=== PATIENT | female | born 1985 | race Caucasian/White ===

== ENCOUNTER → 2019-02-11 | Outpatient (REF) ==
[~2019-02-11] MED LIST: ALPRAZOLAM0.25 M1 PO; ANTIVERT PO; BLOOD GLUCOSE MONITO XX; BLOOD GLUCOSE TEST S VI; CYANOCOBALAM1000 MCG IJ; GLIPIZIDE ER10 M1 PO; IMITREX25 MG PO; INVOKANA100 MG PO; INVOKANA300 MG PO; LANCETS 30G30 G XX; LEVEMIR1000 UNITS SC; LEVOTHROID125 MCG PO; LEVOTHYROXIN112 MC1 PO; LEVOTHYROXIN125 MCG PO; LEVOTHYROXIN150 MC1 PO; MAXALT-MLT10 MG PO; MECLIZINE12.5 M1 PO; MECLIZINE12.5 MG PO; METFORMIN1000 MG PO; METFORMIN500 M1 PO; METFORMIN500 MG PO; NOVOLOG100 IU/1 M SC; ONDANSETRON4 MG PO
== END | disposition home or self-care (01) | DRG 305 ==
LOC: LAB 07:41
PROVIDERS: ATTEND Family Medicine
DX: I10 Essential (primary) hypertension (principal); E78.5 Hyperlipidemia, unspecified; R73.09 Other abnormal glucose; E11.8 Type 2 diabetes mellitus with unspecified complications; E03.9 Hypothyroidism, unspecified

== ENCOUNTER → 2019-02-11 | Outpatient (REF) | payer OTHER ==
[2019-02-11 09:46] LABS: HEMATOCRIT 39.8 % (37.0-47.0); HEMOGLOBIN 13.1 g/dl (12.0-16.0); IMMATURE GRANULOCYTES 0.4 % (0.0-5.0); MEAN CELL VOLUME 93.2 fL CALC (80.0-100.0); MEAN CORPUSCULAR HGB 30.7 pG CALC (26.0-32.0); MEAN CORPUSCULAR HGB CONC 32.9 g/L CALC (32.0-36.0); NEUT# 2.88 thou/uL (2.00-7.15); RED BLOOD COUNT 4.27 mill/uL (4.20-5.60); RED CELL DISTRI WIDTH 12.3 % (11.5-15.5)
[2019-02-11 11:42] LABS: ALBUMIN 3.8 g/dL (3.2-5.0); ALKALINE PHOSPHATASE 45 u/l (38-126); ANION GAP 12 (6-22 (CALC)); BILIRUBIN, TOTAL 0.5 mg/dL (0.0-1.4); BUN 15 mg/dL (7-17); BUN/CREATININE RATIO 20 (12-20 (CALC)); CARBON DIOXIDE 26 mmol/l (22-30); CHLORIDE 105 mmol/l (95-108); CREATININE 0.8 mg/dL (0.5-1.0); GFR > 60 ML/MIN (>=60 (CALC)); GFR FOR AFR.AMER. > 60 ML/MIN (>=60 (CALC)); POTASSIUM 3.7 mmol/l (3.5-5.1); SGOT/AST 16 u/l (14-36); SODIUM 138 mmol/l (137-146); TOTAL PROTEIN 6.2 g/dL (6.3-8.2)
== END | disposition home or self-care (01) | DRG 305 ==
LOC: LAB 07:39
PROVIDERS: ATTEND Family Medicine
DX: I10 Essential (primary) hypertension (principal); E78.5 Hyperlipidemia, unspecified; R73.09 Other abnormal glucose; E11.8 Type 2 diabetes mellitus with unspecified complications; E03.9 Hypothyroidism, unspecified

== ENCOUNTER 2019-07-10 14:12 | Inpatient (IN) | payer OTHER ==
[~2019-07-10] VITALS: Ht 180.3 cm; Wt 93.0 kg
[2019-07-10] VITALS (8 sets, daily range): BP systolic 90–117; BP diastolic 51–69
--- NOTE | 2019-07-10 14:12 | NUR ---
PT IMMEADIATELY TO ROOM VIA WC.
--- NOTE | 2019-07-10 14:50 | NUR ---
PATIENT ADVISED THAT SHE HAS NOT BEEN ABLE TO KEEP ANYTHING DOWN INCLUDING MEDICATIONS OR WATER. SHE IS DEHYDRATED. LAB PERFORMED STRAIGHT STICK FOR COLLECTION
[2019-07-10 15:04] LABS: HEMATOCRIT 40.4 % (37.0-47.0); HEMOGLOBIN 13.1 g/dl (12.0-16.0); IMMATURE GRANULOCYTES 0.4 % (0.0-5.0); MEAN CELL VOLUME 95.7 fL CALC (80.0-100.0); MEAN CORPUSCULAR HGB CONC 32.4 g/L CALC (32.0-36.0); NEUT# 9.96 thou/uL (2.00-7.15); RED BLOOD COUNT 4.22 mill/uL (4.20-5.60); RED CELL DISTRI WIDTH 12.1 % (11.5-15.5)
--- NOTE | 2019-07-10 15:18 | NUR ---
PATIENT CONTINUES TO REST. HAS REQUEST TO URINATE. PATIENT WAS ADVISED THAT SHE IS TOO UNSTEADY TO WALK TO RESTROOM. BSC PROVIDED. UA COLLECTED.
[2019-07-10 15:22] LABS: BUN 13 mg/dL (7-17); BUN/CREATININE RATIO 12 (12-20 (CALC)); CHLORIDE 105 mmol/l (95-108); GFR > 60 ML/MIN (>=60 (CALC)); GFR FOR AFR.AMER. > 60 ML/MIN (>=60 (CALC)); SGOT/AST 19 u/l (14-36); SODIUM 139 mmol/l (137-146)
[2019-07-10 15:25] LABS: ANION GAP 30 (6-22 (CALC)); CARBON DIOXIDE 9 mmol/l (22-30); POTASSIUM 5.4 mmol/l (3.5-5.1)
[2019-07-10 15:26] LABS: ALBUMIN 5.1 g/dL (3.2-5.0); ALKALINE PHOSPHATASE 97 u/l (38-126); BILIRUBIN, TOTAL 1.1 mg/dL (0.0-1.4); TOTAL PROTEIN 7.9 g/dL (6.3-8.2)
[2019-07-10] MEDS ORDERED: LEVOTHYROXIN100 MCG PO (15:30)
[2019-07-10 15:35] LABS: URINE BILIRUBIN - DIPSTICK NEGATIVE (NEGATIVE); URINE BLOOD DIPSTICK MODERATE (NEGATIVE); URINE COLOR YELLOW; URINE GLUCOSE - DIPSTICK >=1000 mg/dL (NEGATIVE); URINE KETONE >=80 mg/dL (NEGATIVE); URINE LEUK ESTERASE NEGATIVE (NEGATIVE); URINE PH 5.5 (4.5-8.0); URINE PROTEIN - DIPSTICK TRACE mg/dL (NEG-TRACE); URINE SPECIFIC GRAVITY 1.025; URINE UROBILINOGEN - DIPSTICK 0.2 E.U./dL (0.2)
[2019-07-10 15:44] LABS: URINE EPITHELIAL CELLS RARE EPI/hpf (0-FEW); URINE NITRITE - DIPSTICK NEGATIVE (Negative)
--- NOTE | 2019-07-10 15:55 | NUR ---
PATIENT LAYING ON RIGHT SIDE. WITH C/O HEADACHE- SCATTERED AROUND HEAD. ADVISED WILL DISCUSS WITH MD ABOUT SOMETHING TO EASE PAIN.
--- NOTE | 2019-07-10 16:22 | NUR ---
LAB IN ROOM FOR 2ND LACTIC ACID DRAW
--- NOTE | 2019-07-10 17:00 | NUR ---
BG FINGERSTICK COLLECTED WITH 392 RESULT. PATIENT CURRENTLY RUNNING 5 UNITS INSULIN DRIP
--- NOTE | 2019-07-10 17:53 | NUR ---
RECHECK ACCUCHEK: 333. CONTINUES WITH INSULIN AT 4UNITS/HR
--- NOTE | 2019-07-10 18:00 | NUR ---
REPORT GIVEN TO ACCOUNTING REPRESENTATIVE DANISH. ALL PERSONAL ITEMS WERE COLLECTED AND GIVEN TO SPOUSE. CT SCAN HEAD ORDERED PRIOR TO ADMISSION TO ICU. PATIENT WILL GO FROM ER TO CT THEN TO ICU.
[2019-07-10 18:13] LABS: POTASSIUM 4.5 mmol/l (3.5-5.1)
--- NOTE | 2019-07-10 18:14 | NUR ---
PATIENT TRANSPORTED TO CT WITH SPOUSE IN TOW. SHE WAS ON MONITOR AND CONTINUED WITH INSULIN AT 4 UNITS/HR AND NS AT 750ML/HR. VITALS REMAIN STABLE WITH EXCEPTION OF HR >110BPM. PATIENT THEN TRANSFERRED TO ICU4 ONCE COMPLE[address]ED CT SCAN. UPDATED DANISH IN ICU UPON ARRIVAL. CARE SURRENDERED TO ICU
[2019-07-10] MEDS ORDERED: TRESIBA100 UNIT/M (18:59)
--- NOTE | 2019-07-10 19:00 | NUR ---
PATIENT LAYING WITH HOB 30 DEGREES. ALERT AND ORIENTED X4. ON RA. NO ACUTE RESPIRATORY DISTRESS NOTED. SATS 100%. HEAD TO TOE NURSING ASSESSMENT PERFORMED. COMPLAINS OF HEADACHE RATE OF 8 RADIATES TO ABDOMEN AND BACK. REQUESTS STRONGER PAIN MEDICATION FOR ADAMSON. LH 22 G IV INTACT, NS BOLUS INFUSING. 3RD NS BOLUS INFUSING. LAST BM 07/09/19. AFEBRILE. SINUS TACHYCARDIA IN LOW 100'S ON TELEMETRY. ADMISSION INTERVENTIONS COMPLETE. AT BEDSIDE. EDUCATED ON POC, MEDICATIONS, LABWORK, TESTS. ALSO AHS INSULIN DRIP INFUSING AT 4 UNITS/HR. INFORMED WILL TALK TO DR KANG OF PAIN MEDICATION FOR ADAMSON. INFORMED CT RESULTS WILL BE INFORMED TO DR KANG WELL. SAFETY PRECAUTIONS ENFORCED. CALL LIGHT WITHIN REACH. WILL CONTINUE TO MONITOR. SELF REPOSITIONS. ALSO INFORMS SHE IS SPOTTING FROM HER PERIOD.
--- NOTE | 2019-07-10 19:30 | NUR ---
dr raines called, update given on patient. new orders received. pain medication order will be placed by dr raines.
[2019-07-10 21:46] LABS: ANION GAP 21 (6-22 (CALC)); BUN 10 mg/dL (7-17); BUN/CREATININE RATIO 12 (12-20 (CALC)); CHLORIDE 115 mmol/l (95-108); CREATININE 0.9 mg/dL (0.5-1.0); GFR > 60 ML/MIN (>=60 (CALC)); GFR FOR AFR.AMER. > 60 ML/MIN (>=60 (CALC)); POTASSIUM 4.5 mmol/l (3.5-5.1); SODIUM 139 mmol/l (137-146)
[2019-07-10 22:02] LABS: CARBON DIOXIDE 8 mmol/l (22-30)
--- NOTE | 2019-07-10 22:10 | NUR ---
dr raines notified of co2 critical at 8. also notified him of recent chem 7 lab results and blood sugar. orders to follow dka protocol and insulin drip protocol. orders to call as needed.
[2019-07-11] VITALS (25 sets, daily range): BP systolic 81–114; BP diastolic 40–71
--- NOTE | 2019-07-11 | NUR ---
PATIENT STILL COMPLAINS OF ADAMSON. AROUSES EASILY WHEN SPOKEN TO. LAYING SUPINE. SELF REPOSITIONS. CALL LIGHT WITHIN REACH.
--- NOTE | 2019-07-11 00:12 | NUR ---
KATERINA KAMARA APPLIED TO PATIENT, RECTAL TEMP 94.4.
--- NOTE | 2019-07-11 02:00 | NUR ---
PATIENT LAYING SUPINE IN BED. REQUESTED HOT PACKS EARLIER, APPLIED TO BACK OF NECK, HEAD. AROUSES EASILY. ON ROOM AIR. NSR ON TELEMETRY, HR IN 90'S. STILL COMPLAINS OF ADAMSON RATE OF 8. PLACEMENT MANAGER IN ROOM TO GET CHEM 7. CALL LIGHT WITHIN REACH. WILL CONTINUE TO MONITOR.
[2019-07-11 02:33] LABS: BUN 9 mg/dL (7-17); BUN/CREATININE RATIO 12 (12-20 (CALC)); CHLORIDE 114 mmol/l (95-108); CREATININE 0.7 mg/dL (0.5-1.0); GFR > 60 ML/MIN (>=60 (CALC)); GFR FOR AFR.AMER. > 60 ML/MIN (>=60 (CALC)); SODIUM 135 mmol/l (137-146)
[2019-07-11 03:16] LABS: ANION GAP 13 (6-22 (CALC)); CARBON DIOXIDE 12 mmol/l (22-30)
--- NOTE | 2019-07-11 03:31 | NUR ---
CALLED DR KANG TO NOTIFY OG ANION GAP CLOSED AND CURRENT LAB RESULTS, NEW ORDERS PLACED IN CHART. ALSO NOTIFIED DR KANG OF PATIENT COMPLAINS OF HEADACHE RATE OF 8, NEW ORDERS GIVEN.
--- NOTE | 2019-07-11 04:07 | NUR ---
PATIENT ASSISTED X1 MINIMAL TO BSC. URINE YELLOW AND CLEAR. PAIN MEDICATION ALREADY GIVEN FOR ADAMSON, WILL MONITOR. POC FOR THIS MORNING DISCUSSED. ALL QUESTIONS ANSWERED. CONTINUES TO USE HEAT PACKS. WILL CONTINUE TO MONITOR.
[2019-07-11 06:07] LABS: IMMATURE GRANULOCYTES 0.3 % (0.0-5.0); MEAN CELL VOLUME 95.7 fL CALC (80.0-100.0); MEAN CORPUSCULAR HGB 32.1 pG CALC (26.0-32.0); MEAN CORPUSCULAR HGB CONC 33.5 g/L CALC (32.0-36.0); NEUT# 7.87 thou/uL (2.00-7.15); RED BLOOD COUNT 3.27 mill/uL (4.20-5.60); RED CELL DISTRI WIDTH 12.1 % (11.5-15.5)
[2019-07-11 06:11] LABS: HEMATOCRIT 31.3 % (37.0-47.0); HEMOGLOBIN 10.5 g/dl (12.0-16.0)
[2019-07-11 06:21] LABS: ANION GAP 13 (6-22 (CALC)); BUN 7 mg/dL (7-17); BUN/CREATININE RATIO 9 (12-20 (CALC)); CARBON DIOXIDE 13 mmol/l (22-30); CHLORIDE 113 mmol/l (95-108); CREATININE 0.7 mg/dL (0.5-1.0); GFR > 60 ML/MIN (>=60 (CALC)); GFR FOR AFR.AMER. > 60 ML/MIN (>=60 (CALC)); POTASSIUM 3.9 mmol/l (3.5-5.1); SODIUM 135 mmol/l (137-146)
--- NOTE | 2019-07-11 06:30 | NUR ---
PATIENT STILL COMPLAINS OF HEADACHE, NEW ORDER PLACED FOR PAIN MEDICATION. REQUESTS MORE HOT PACKS. REMAINS HYPOTENSIVE 80'S TO 90'S SYTOLICALLY, MAP GREATER THAN 60. TOLERATED NEW IV PLACED ON RH 22G. BOLUS OF NS INFUSING. EDUCATED ON MEDICATIONS SHE WILL BE RECEIVING. CALL LIGHT WITHIN REACH.
--- NOTE | 2019-07-11 06:41 | NUR ---
CALLED DR KANG REGARDING PAIENT'S BP, NEW ORDERS PLACED.
--- NOTE | 2019-07-11 06:45 | NUR ---
RECIEVED REPORT FROM SANDRA MORALES . ASSUMED PT CARE.
--- NOTE | 2019-07-11 07:00 | NUR ---
PT A&OX3 ABLE TO MAKE NEEDS KNOWN. ASSESSMENT COMPLETED, PT CONTINUES ON INSULIN DRIP PER PROTOCOL, AFEBRILE. PT CONTINUES WITH MIGRAINE, STATED PAIN 12 ON 12-11. PT HAS HEATING PAD FOR NECK DISCOMFORT. FATHER AT BEDSIDE. CALL LIGHT IN REACH. WILL MONITOR.
--- NOTE | 2019-07-11 07:50 | NUR ---
PT REPOSTIONED SELF, BREAKFAST TRAY SET UP.
--- NOTE | 2019-07-11 10:00 | NUR ---
DR. KANG AT BEDSIDE FOR ASSESSMENT AND TO DISCUSS PLAN OF CARE, NEW ORDERS RECIEVED. FATHER REMAINS AT BEDSIDE.
--- NOTE | 2019-07-11 10:20 | NUR ---
PT ASSISTED TO BSC, THEN BACK TO BED. CALL LIGHT IN REACH. WILL MONITOR.
[2019-07-11 10:30] LABS: ANION GAP 10 (6-22 (CALC)); BUN 6 mg/dL (7-17); BUN/CREATININE RATIO 9 (12-20 (CALC)); CARBON DIOXIDE 14 mmol/l (22-30); CHLORIDE 113 mmol/l (95-108); CREATININE 0.7 mg/dL (0.5-1.0); GFR > 60 ML/MIN (>=60 (CALC)); GFR FOR AFR.AMER. > 60 ML/MIN (>=60 (CALC)); POTASSIUM 3.8 mmol/l (3.5-5.1); SODIUM 133 mmol/l (137-146)
--- NOTE | 2019-07-11 11:35 | NUR ---
THOM THURMAN AT BEDSIDE FOR ASSESSMENT AND TO DISCUSS PLAN OF CARE.
--- NOTE | 2019-07-11 12:09 | NUR ---
PT AT BEDSIDE.
--- NOTE | 2019-07-11 14:10 | NUR ---
PT RESTING IN BED, STATES H/A PAIN 2 ON 1-10 SCALE. WATCHING TV, OFFERS NO COMPLAINTS AT THIS TIME. CALL LIGHT IN REACH. WILL MONITOR.
[2019-07-11 14:44] LABS: ANION GAP 10 (6-22 (CALC)); BUN 6 mg/dL (7-17); BUN/CREATININE RATIO 9 (12-20 (CALC)); CARBON DIOXIDE 16 mmol/l (22-30); CHLORIDE 113 mmol/l (95-108); CREATININE 0.7 mg/dL (0.5-1.0); GFR > 60 ML/MIN (>=60 (CALC)); GFR FOR AFR.AMER. > 60 ML/MIN (>=60 (CALC)); POTASSIUM 3.9 mmol/l (3.5-5.1); SODIUM 136 mmol/l (137-146)
--- NOTE | 2019-07-11 18:20 | NUR ---
PT STATED THAT HER THROAT WAS HURTING HER AND HER CHEST FELT TIGHT LIKE SHE NEEDED TO COUGH. PT ENCOURAGED TO DEEP BREATHE. TRY COUGHING AND TO GET UP TO RECLINER OR WALK. IS PLACED AT BEDSIDE, EDUCATION GIVEN ON IT USE. PT ALSO MENTIONED HER CHILD IS A CARRIER OF STREP A , DEEP THROAT SWAB PER PROTOCOL COLLECTED. PT REMAINS AFEBRILE. VSS. PT MOTHER REMAINS AT BEDSIDE. CALL LIGHT IN REACH, WILL MONITOR.
--- NOTE | 2019-07-11 19:10 | NUR ---
awake. denied n/v. site monitor shows sinus rhythm. #22 lt hand saline lock. #22 rt hand ns infusing @ 150cchr. po fluids taken well. voids per bsc. pt admitted menses began. fall precautions cont. mother @ bedside.
--- NOTE | 2019-07-11 22:00 | NUR ---
watching tv. no c/o voiced. home theatre technician shows sinus rhythm.
[2019-07-12] VITALS (9 sets, daily range): BP systolic 96–143; BP diastolic 62–87
--- NOTE | 2019-07-12 00:01 | NUR ---
awakens easily. denies distress. youth nutritional monitor shows sinus rhythm.
--- NOTE | 2019-07-12 02:00 | NUR ---
resting quietly. resps even & unlabored. no apparent distress.
--- NOTE | 2019-07-12 04:30 | NUR ---
lab here. blood drawn.
[2019-07-12 05:47] LABS: HEMATOCRIT 30.4 % (37.0-47.0); HEMOGLOBIN 10.3 g/dl (12.0-16.0); IMMATURE GRANULOCYTES 0.2 % (0.0-5.0); MEAN CELL VOLUME 94.1 fL CALC (80.0-100.0); MEAN CORPUSCULAR HGB 31.9 pG CALC (26.0-32.0); MEAN CORPUSCULAR HGB CONC 33.9 g/L CALC (32.0-36.0); NEUT# 2.61 thou/uL (2.00-7.15); RED BLOOD COUNT 3.23 mill/uL (4.20-5.60); RED CELL DISTRI WIDTH 12.2 % (11.5-15.5)
[2019-07-12 05:52] LABS: ANION GAP 7 (6-22 (CALC)); BUN 8 mg/dL (7-17); BUN/CREATININE RATIO 13 (12-20 (CALC)); CARBON DIOXIDE 19 mmol/l (22-30); CHLORIDE 115 mmol/l (95-108); CREATININE 0.6 mg/dL (0.5-1.0); GFR > 60 ML/MIN (>=60 (CALC)); GFR FOR AFR.AMER. > 60 ML/MIN (>=60 (CALC)); MAGNESIUM 1.7 mg/dL (1.6-2.3); POTASSIUM 3.7 mmol/l (3.5-5.1); SODIUM 138 mmol/l (137-146)
--- NOTE | 2019-07-12 06:00 | NUR ---
eyes closed. no distress. conveyor monitor shows sinus rhythm.
--- NOTE | 2019-07-12 06:45 | NUR ---
RECIEVED REPORT FROM CHINA NAGY. ASSUMED PT CARE.
--- NOTE | 2019-07-12 08:00 | NUR ---
PT RESTING IN BED, A&0 ABLE TO MAKE NEEDS KNOWN AND UTILIZE CALL LIGHT.RESPIRATIONS EVEN/UNLABORED. PT DENIES H/A AT THIS TIME. ASSESSMENT COMPLETED. CALL LIGHT IN REACH. WILL MONITOR.
--- NOTE | 2019-07-12 09:45 | NUR ---
DR. KANG AT BEDSIDE FOR ASSESSMENT AND TO DISCUSS PLAN OF CARE. NEW ORDERS RECIEVED. CALL LIGHT IN REACH. WILL MONITOR.
--- NOTE | 2019-07-12 10:00 | NUR ---
THOM THURMAN AT BEDSIDE.
--- NOTE | 2019-07-12 12:00 | NUR ---
FAMILY AT BEDSIDE , OFFERS NO COMPLAINTS AT THIS TIME.
--- NOTE | 2019-07-12 13:20 | NUR ---
PT TRANSFERRED FROM ICU VIA WHEELCHAIR. GAIT IS STEADY. VSS. PT HAS NO ORDER FOR TELE. ORIENTED TO ROOM AND CALL ESPINOSA. PT ASSISTED INTO THE SHOWER. FAMILY AT BEDSIDE. CALL ESPINOSA WITHIN REACH.
--- NOTE | 2019-07-12 14:00 | NUR ---
PT RESTING IN BED. ALERT AND ORIENTED X4. RESP EVEN AND UNLABORED. LUNGS CLEAR BILAT. ABD SOFT AND NONDISTENDED WITH BOWEL SOUNDS PRESENT. NO LOWER EXT EDEMA NOTED. PEDAL PULSES PALPATED BILAT. HEPLOCK PATENT IN RT HAND. IV SITE PATENT IN LEFT HAND NSS AT 150CC/HR. PT OFFERS NO COMPLAINTS. AT THIS TIME. FAMILY AT BEDSIDE. FREQUENT ROUNDS MADE. CALL ESPINOSA WITHIN REACH.
--- NOTE | 2019-07-12 17:00 | NUR ---
PT AWAKE RESTING IN BED. FAMILY AT BEDSIDE. RESP EVEN AND UNLABORED. IV SITE PATENT NO REDNESS OR SWELLING AT SITE. PT OFFERS NO COMPLAINTS. FREQUENT ROUNDS MADE. CALL ESPINOSA WITHIN REACH.
--- NOTE | 2019-07-12 19:08 | NUR ---
REPORT RECEIVED FROM SANDRA MUNOZ. PT RESTING IN BED NO S/S OF DISTRESS, SAFETY PRECAUTIONS IN PLACE, WILL CONTINUE TO MONITOR.
--- NOTE | 2019-07-12 19:55 | NUR ---
PT RESTING IN BED, ALERT AND ORIENTED. RESPIRATIONS EVEN AND UNLABORED ON RA, LUNGS SOUND CLEAR. PEDAL PULSES STRONG. PT REPORTS FEELING NAUSEOUS, PT TO BE MEDICATED PER EMAR ORDERS. SAFETY PRECAUTIONS IN PLACE. WILL CONTINUE TO MONITOR.
--- NOTE | 2019-07-13 02:59 | NUR ---
PT RESTING IN BED. RESPIRATIONS EVEN AND UNLABORED ON RA. NO S/S OF DISTRESS. WILL CONTINUE TO MONITOR.
--- NOTE | 2019-07-13 04:30 | NUR ---
PT RESTING IN BED. RESPIRATIONS EVEN AND UNLABORED ON RA. NO S/S OF DISTRESS AT THIS TIME. WILL CONTINUE TO MONITOR.
[2019-07-13 04:47] VITALS: BP 108/71
[2019-07-13 05:53] LABS: BUN 7 mg/dL (7-17); BUN/CREATININE RATIO 12 (12-20 (CALC)); CHLORIDE 114 mmol/l (95-108); CREATININE 0.6 mg/dL (0.5-1.0); GFR > 60 ML/MIN (>=60 (CALC)); GFR FOR AFR.AMER. > 60 ML/MIN (>=60 (CALC)); SODIUM 141 mmol/l (137-146)
[2019-07-13 06:25] LABS: ANION GAP 7 (6-22 (CALC)); CARBON DIOXIDE 23 mmol/l (22-30)
--- NOTE | 2019-07-13 07:13 | NUR ---
INITIAL BLOOD SUGAR THIS AM 59. PT RECHECKED, NOW 66. PT THEN DRANK CUP OF ORANGE JUICE.
[2019-07-13 08:00] VITALS: BP 115/78
--- NOTE | 2019-07-13 10:45 | NUR ---
PT IS NOT HUNGRY THIS MORNING, HAS NOT EATEN ANYTHING. INSULINS HELD UNTIL SHE RETURNS TO NORMAL APPETITE.
--- NOTE | 2019-07-13 13:09 | NUR ---
PT SEEN BY DIETARY, QUESTIONS ANSWERED.
--- NOTE | 2019-07-13 14:03 | NUR ---
IVF STOPPED PER PT REQUEST. SECOND IV PULLED, REDUNDANT.
[2019-07-13] MEDS ORDERED: ZOFRAN4 MG/TAB PO (14:51)
--- NOTE | 2019-07-13 15:38 | NUR ---
DISCHARGE ORDERS REVIEWED WITH PATIENT, RX FOR ZOFRAN GIVEN TO HER, PT'S OWN MEDICATION, MAXALT, RETURNED 4 CAPSULES TO HER. PT AMBULATORY IN HALLWAY. PT'S BLOOD SUGAR WAS RECHECKED PRIOR TO DEPARTURE, GIVEN 3 UNITS REGULAR INSULIN FOR BS 268. NO N/V UPON DEPARTURE.
--- NOTE | 2019-07-13 15:51 | NUR ---
PT VERBALIZES UNDERSTANDING OF DC INSTRUCTIONS, TAKEN TO VEHICLE VIA WHEELCHAIR.
== END 2019-07-13 15:45 | disposition home or self-care (01) | DRG 639 ==
LOC: ED 14:12 → ED-I 16:15 → ED 16:54 → MS2 16:55 → ICU 16:55 → MS2 07-12 13:20
PROVIDERS: Emergency Medicine; Internal Medicine; ADMIT Internal Medicine; ATTEND Internal Medicine
DX: E10.10 Type 1 diabetes mellitus with ketoacidosis without coma (principal); G43.909 Migraine, unspecified, not intractable, without status migrainosus; I95.9 Hypotension, unspecified; E87.6 Hypokalemia; E89.0 Postprocedural hypothyroidism; Y84.2 Radiological procedure and radiotherapy as the cause of abnormal reaction of the patient, or of later complication, without mention of misadventure at the time of the procedure; Z79.4 Long term (current) use of insulin
CPT/HCPCS: J0131

== ENCOUNTER 2019-08-11 12:24 | Emergency (ER) | payer OTHER ==
[~2019-08-11] VITALS: Ht 180.3 cm; Wt 85.0 kg
[~2019-08-11 12:24] MED LIST changes: +LEVOTHYROXIN100 MCG PO; +TRESIBA100 UNIT/M; +ZOFRAN4 MG/TAB PO
[2019-08-11 13:44] LABS: HEMATOCRIT 36.4 % (37.0-47.0); HEMOGLOBIN 12.1 g/dl (12.0-16.0); IMMATURE GRANULOCYTES 0.2 % (0.0-5.0); MEAN CELL VOLUME 94.1 fL CALC (80.0-100.0); MEAN CORPUSCULAR HGB 31.3 pG CALC (26.0-32.0); MEAN CORPUSCULAR HGB CONC 33.2 g/L CALC (32.0-36.0); NEUT# 2.27 thou/uL (2.00-7.15); RED BLOOD COUNT 3.87 mill/uL (4.20-5.60)
[2019-08-11 14:03] LABS: ALBUMIN 4.1 g/dL (3.2-5.0); ALKALINE PHOSPHATASE 52 u/l (38-126); ANION GAP 13 (6-22 (CALC)); BILIRUBIN, TOTAL 0.5 mg/dL (0.0-1.4); BUN 14 mg/dL (7-17); BUN/CREATININE RATIO 20 (12-20 (CALC)); CARBON DIOXIDE 26 mmol/l (22-30); CHLORIDE 102 mmol/l (95-108); CREATININE 0.7 mg/dL (0.5-1.0); GFR > 60 ML/MIN (>=60 (CALC)); GFR FOR AFR.AMER. > 60 ML/MIN (>=60 (CALC)); POTASSIUM 4.1 mmol/l (3.5-5.1); SGOT/AST 21 u/l (14-36); SODIUM 137 mmol/l (137-146); TOTAL PROTEIN 6.8 g/dL (6.3-8.2)
[2019-08-11 14:05] LABS: URINE BILIRUBIN - DIPSTICK NEGATIVE (NEGATIVE); URINE BLOOD DIPSTICK NEGATIVE (NEGATIVE); URINE COLOR YELLOW; URINE GLUCOSE - DIPSTICK >=1000 mg/dL (NEGATIVE); URINE KETONE 15 mg/dL (NEGATIVE); URINE LEUK ESTERASE NEGATIVE (NEGATIVE); URINE NITRITE - DIPSTICK NEGATIVE (Negative); URINE PROTEIN - DIPSTICK NEGATIVE (NEG-TRACE); URINE UROBILINOGEN - DIPSTICK 0.2 E.U./dL (0.2)
[2019-08-11 16:24] VITALS: BP 116/73
== END 2019-08-11 16:34 | disposition home or self-care (01) | DRG 312 ==
LOC: ED 12:24
PROVIDERS: Family Medicine
DX: R55 Syncope and collapse (principal); R07.9 Chest pain, unspecified; E11.9 Type 2 diabetes mellitus without complications; E05.00 Thyrotoxicosis with diffuse goiter without thyrotoxic crisis or storm; Z79.4 Long term (current) use of insulin

== ENCOUNTER 2021-08-06 21:55 | Emergency (ER) | payer OTHER ==
[~2021-08-06] VITALS: Ht 177.8 cm; Wt 86.0 kg
[~2021-08-06 21:55] MED LIST changes: +ZANAFLEX2 MG PO
[2021-08-06] MEDS ORDERED: AMOXICILLIN500 MG PO (23:05)
[2021-08-06 23:28] VITALS: BP 128/78
[2021-09-08] MEDS ORDERED: TESSALON PERLE100 MG PO (16:54)
[2021-09-08] MEDS ORDERED: AZITHROMYCIN500 MG PO (16:54)
[2021-11-09] MEDS ORDERED: MAXALT10 MG PO (17:33)
[2021-11-09] MEDS ORDERED: LEVOTHYROXIN175 MC1 PO (17:33)
[2021-11-09] MEDS ORDERED: NOVOLOG FL100 UNIT/M SC (17:34)
[2021-11-09] MEDS ORDERED: PHENTERMINE37.5 MG PO (17:35)
[2021-11-09] MEDS ORDERED: XANAX0.25 MG PO (17:35)
[2021-11-09] MEDS ORDERED: TRESIBA FL100 UNIT/M SC (17:35)
[2021-11-09] MEDS ORDERED: ZOVIRAX51 EX (17:37)
[2021-11-09] MEDS ORDERED: MUPIROCIN2 % EX (17:37)
[2021-11-20] MEDS ORDERED: TAM75CAP PO (14:24)
== END 2021-08-06 23:28 | disposition home or self-care (01) | DRG 605 ==
LOC: ED 21:55
DX: S60.451A Superficial foreign body of left index finger, initial encounter (principal); E11.9 Type 2 diabetes mellitus without complications; E05.00 Thyrotoxicosis with diffuse goiter without thyrotoxic crisis or storm; W45.8XXA Other foreign body or object entering through skin, initial encounter; Y92.009 Unspecified place in unspecified non-institutional (private) residence as the place of occurrence of the external cause; Z79.4 Long term (current) use of insulin

== ENCOUNTER → 2021-08-07 | Outpatient (REF) ==
[~2021-08-07] MED LIST changes: +AMOXICILLIN500 MG PO
== END | disposition home or self-care (01) | DRG 951 ==
LOC: LAB 10:03
PROVIDERS: ATTEND Family Medicine
DX: Z11.52 Encounter for screening for COVID-19 (principal)

== ENCOUNTER 2022-02-11 12:21 | Emergency (ER) | payer OTHER ==
[~2022-02-11] VITALS: Ht 177.8 cm; Wt 90.0 kg
[~2022-02-11 12:21] MED LIST changes: +AZITHROMYCIN500 MG PO; +D3400 UNI1 PO; +LEVOTHYROXIN175 MC1 PO; +LEVOTHYROXIN200 MC2 PO; +MAXALT10 MG PO; +MUPIROCIN2 % EX; +NOVOLOG FL100 UNIT/M SC; +PHENTERMINE37.5 MG PO; +TAM75CAP PO; +TESSALON PERLE100 MG PO; +TRESIBA FL100 UNIT/M SC; +VITAMIN B-121000 MCG PO; +XANAX0.25 MG PO; +ZOVIRAX51 EX; +[UNRECOGNIZED DRUG - SUPPLY] SC
[2022-02-11 12:25] VITALS: BP 125/76
[2022-02-11 12:31] VITALS: BP 117/70
[2022-02-11] MEDS ORDERED: OMNICEF300 M1 PO (12:51)
[2022-02-11 13:20] VITALS: BP 117/70
== END 2022-02-11 13:20 | disposition home or self-care (01) | DRG 863 ==
LOC: ED 12:21
DX: T81.41XA Infection following a procedure, superficial incisional surgical site, initial encounter (principal); L03.211 Cellulitis of face; E11.9 Type 2 diabetes mellitus without complications; E05.00 Thyrotoxicosis with diffuse goiter without thyrotoxic crisis or storm; Y83.8 Other surgical procedures as the cause of abnormal reaction of the patient, or of later complication, without mention of misadventure at the time of the procedure; Z79.4 Long term (current) use of insulin

== ENCOUNTER 2022-03-31 05:16 | Observation (INO) | payer OTHER ==
[~2022-03-31] VITALS: Ht 177.8 cm; Wt 94.0 kg
[2022-03-31] VITALS (17 sets, daily range): BP systolic 86–115; BP diastolic 47–71
[~2022-03-31 05:16] MED LIST changes: +OMNICEF300 M1 PO
--- NOTE | 2022-03-31 05:32 | NUR ---
PATIENT IN ROOM 12
[2022-03-31 05:59] LABS: HEMOGLOBIN 12.8 g/dl (12.0-16.0); IMMATURE GRANULOCYTES 0.1 % (0.0-5.0); MEAN CELL VOLUME 96.6 fL CALC (80.0-100.0); MEAN CORPUSCULAR HGB 30.9 pG CALC (26.0-32.0); NEUT# 9.82 thou/uL (2.00-7.15); RED BLOOD COUNT 4.14 mill/uL (4.20-5.60); RED CELL DISTRI WIDTH 12.2 % (11.5-15.5)
--- NOTE | 2022-03-31 06:03 | NUR ---
PT ON STRETCHER, RN AND SPOUSE AT BEDSIDE. PT RESTING COMFORTABLY AFTER MEDICATION ADMINISTRATION.
[2022-03-31 06:17] LABS: ALBUMIN 3.7 g/dL (3.2-5.0); ALKALINE PHOSPHATASE 62 u/l (38-126); AMYLASE 39 u/l (30-110); BUN 12 mg/dL (7-17); BUN/CREATININE RATIO 15 (12-20 (CALC)); CHLORIDE 110 mmol/l (95-108); CREATININE 0.8 mg/dL (0.5-1.0); GFR > 60 ML/MIN (>=60 (CALC)); GFR FOR AFR.AMER. > 60 ML/MIN (>=60 (CALC)); LIPASE 17 u/l (23-300); SGOT/AST 27 u/l (14-36); SODIUM 134 mmol/l (137-146); TOTAL PROTEIN 6.4 g/dL (6.3-8.2)
[2022-03-31 06:24] LABS: POTASSIUM 5.3 mmol/l (3.5-5.1)
[2022-03-31 06:26] LABS: ANION GAP 20 (6-22 (CALC)); BILIRUBIN, TOTAL 1.1 mg/dL (0.0-1.4); CARBON DIOXIDE 9 mmol/l (22-30)
--- NOTE | 2022-03-31 07:00 | NUR ---
REPORT RECEIVED FROM PM NURSE. PATIENT RESTING ON STRETCHER WITH EYES CLOSED.
[2022-03-31 07:18] LABS: URINE BILIRUBIN - DIPSTICK NEGATIVE (NEGATIVE); URINE BLOOD DIPSTICK SMALL (NEGATIVE); URINE COLOR ORANGE; URINE GLUCOSE - DIPSTICK >=1000 mg/dL (NEGATIVE); URINE KETONE >=80 mg/dL (NEGATIVE); URINE PH 5.5 (4.5-8.0); URINE PROTEIN - DIPSTICK NEGATIVE (NEG-TRACE); URINE SPECIFIC GRAVITY >=1.030; URINE UROBILINOGEN - DIPSTICK 0.2 E.U./dL (0.2)
--- NOTE | 2022-03-31 07:23 | NUR ---
PATIENT ALERT AND ORIENTED X4, NOTED TO HAVE FIVE SMALL INCISIONS ON ABD. REPORTS HAVING HYSTERECTOMY YESTERDAY.
[2022-03-31 07:25] LABS: URINE NITRITE - DIPSTICK POSITIVE (Negative)
[2022-03-31 07:26] LABS: URINE BACTERIA FEW hpf; URINE EPITHELIAL CELLS FEW EPI/hpf (0-FEW); URINE LEUK ESTERASE NEGATIVE (NEGATIVE)
--- NOTE | 2022-03-31 08:11 | NUR ---
PATIENT BACK FROM RADIOLOGY.
[2022-03-31] MEDS ORDERED: LEVOTHYROXIN75 MCG PO (08:48)
[2022-03-31] MEDS ORDERED: TRESIBA FL100 UNIT/M SC (08:49)
[2022-03-31] MEDS ORDERED: NOVOLOG FL100 UNIT/M (08:50)
[2022-03-31] MEDS ORDERED: PERCOCET 5/325M1 TAB PO (08:51)
--- NOTE | 2022-03-31 09:10 | NUR ---
INSULIN DRIP TITRATED TO 3 UNITS/ HOURS AT THIS TIME. PATIENT RESTING ON STRETCHER WITH LIGHT OFF. AWARE OF ADMIT
--- NOTE | 2022-03-31 09:11 | NUR ---
SBAR SENT TO ICU AT THIS TIME.
--- NOTE | 2022-03-31 10:25 | NUR ---
PATIENT UP TO BSC. MADE AWARE OF COVID POSITIVE RESULTS
--- NOTE | 2022-03-31 10:30 | NUR ---
REPORT GIVEN TO Frank DICKINSON RN. ADMITTING AWARE OF ADMIT ORDERS NEEDED.
--- NOTE | 2022-03-31 10:39 | NUR ---
report received from Beth Wilks RN
--- NOTE | 2022-03-31 11:06 | NUR ---
WAITING ON ADMIT ORDERS, ADMITTING AWARE
--- NOTE | 2022-03-31 11:20 | NUR ---
PATIENT CONTINUES ON 2UNITS/HR OF INSULIN WITH A GLUCOSE OF 174
--- NOTE | 2022-03-31 11:47 | NUR ---
female pt received to ICU bed 8 via stretcher accompanied by A SANDRA Wilks in stable condition; no apparent distress noted; pt transferred self to bed; admission assessment completed at this time; pt alert and oriented; admits to abd and back pain rating 8/10; pt also with complaints of nausea; will medicate; pt c/c of n/v/dka symptoms; resp even and unlabored; shallow; lungs clear; skin color wnl; ra; covid prec in place; hr reg; strong pulses; no edema noted; st on monitor; abd soft with bs present; no bm noted per content writer; pt denies passing flatus; pt admits to voiding without complication; no urine to inspect at this time; bsc; #20 saline locked to rac; #20 patent to lac with ivf/ insulin gtt infusing at 2 units/hr; no redness or edema noted at site; lap incisions noted with glue intact to abd s/p transvag hysterectomy; plan of care/ glucose monitor/meds explained; call light within reach; will continue to monitor
--- NOTE | 2022-03-31 11:47 | NUR ---
PATIENT UP TO ICU. SANDRA COYLE AT BEDSIDE, CARE RELINUISHED.
[2022-03-31 12:24] LABS: ANION GAP 13 (6-22 (CALC)); BUN 12 mg/dL (7-17); BUN/CREATININE RATIO 16 (12-20 (CALC)); CHLORIDE 114 mmol/l (95-108); CREATININE 0.7 mg/dL (0.5-1.0); GFR > 60 ML/MIN (>=60 (CALC)); GFR FOR AFR.AMER. > 60 ML/MIN (>=60 (CALC)); POTASSIUM 4.8 mmol/l (3.5-5.1); SODIUM 134 mmol/l (137-146)
[2022-03-31 12:26] LABS: CARBON DIOXIDE 12 mmol/l (22-30)
--- NOTE | 2022-03-31 12:50 | NUR ---
Dr Rene present at bedside to assess pt and discuss plan of care
--- NOTE | 2022-03-31 13:30 | NUR ---
pt awake in bed; continues with complaints of pain; medicated as per orders; st on monitor; iv intact and patent; glucose obtained; plan of care explained; call light within reach; will continue to monitor
--- NOTE | 2022-03-31 15:02 | NUR ---
pt awake in bed eating a salad; admits to pain relief; st on monitor; will continue to monitor
--- NOTE | 2022-03-31 16:10 | NUR ---
pt resting in bed with eyes closed; no apparent distress noted; resp even and unlabored; iv intact and patent; st on monitor; call light within reach; will continue to monitor
--- NOTE | 2022-03-31 18:00 | NUR ---
pt awake in bed conversing on cell phone; offers no complaints; no apparent distress noted; iv intact and patent; voiding orange urine, admits to taking pyridium prior to surgery; st on monitor; deny needs; call light within reach
--- NOTE | 2022-03-31 19:00 | NUR ---
REPORT RECEIVED FROM Frank DICKINSON RN. CARE OF PT ASSUMED AT THIS TIME.
--- NOTE | 2022-03-31 20:13 | NUR ---
POINT OF CARE GLUCOSE 175mg/dl, COLLECTED AND REPORTED TO NURSE BY Kane KATZ CNA.
--- NOTE | 2022-03-31 20:40 | NUR ---
VERBAL EDUCATION PROVIDED ON PLAN OF CARE. LOVENOX, DILAUDID, PHENERGAN, AND INSULIN. PT VERBALIZES UNDERSTANDING. SCHEDULED MEDICATIONS ADMINISTERED, PRN DILAUDID AND PHENERGAN ADMINISTERED PER PT'S REQUEST FOR C/O LOWER ABD PAIN 6/10, RADIATING TO LOW BACK. PT ASSISTED TO POSITION FOR COMFORT, CHOOSING TO LAY ON HER SIDE WITH PILLOW BETWEEN LEGS. PT REPORTS FEELING "WARM",PT AFEBRILE. BEDSIDE FAN PROVIDED FOR COMFORT. 300 ML BRIGHT YELLOW-ORANGE URINE EMPTIED FROM BSC. PT REPORTS TAKING "PYRIDIUM" PRIOR TO ADMISSION UNDER DIRECTION OF PROVIDER. PT DENIES FURTHER NEEDS AT THIS TIME. CALL ESPINOSA WITHIN REACH, AGREES TO CALL PRN.
--- NOTE | 2022-03-31 22:00 | NUR ---
PT RESTING IN BED WITH EYES CLOSED. APPEARS TO BE SLEEPING COMFORTABLY ADN IS IN NO APPARENT DISTRESS. RESPIRATIONS REGULAR AND UNLABORED. CALL ESPINOSA REMAINS WITHIN REACH.
[2022-04-01] VITALS (14 sets, daily range): BP systolic 91–115; BP diastolic 54–75
--- NOTE | 2022-04-01 02:00 | NUR ---
PT UP TO BSC, ASSISTED PT TO REPOSITION BACK IN BED COMFORTABLY. 200ML BRIGHT ORANGE-YELLOW URINE EMPTIED FROM BSC. PT DENIES FURTHER NEEDS AT THIS TIME. CALL ESPINOSA WITHIN REACH, AGREES TO CALL PRN.
--- NOTE | 2022-04-01 04:05 | NUR ---
LABS COLLECTED BY Daya POLLARD CPT
[2022-04-01 05:11] LABS: HEMATOCRIT 34.6 % (37.0-47.0); HEMOGLOBIN 11.1 g/dl (12.0-16.0); MEAN CELL VOLUME 97.2 fL CALC (80.0-100.0); MEAN CORPUSCULAR HGB 31.2 pG CALC (26.0-32.0); MEAN CORPUSCULAR HGB CONC 32.1 g/dL CAL (32.0-36.0); RED BLOOD COUNT 3.56 mill/uL (4.20-5.60); RED CELL DISTRI WIDTH 12.2 % (11.5-15.5)
[2022-04-01 05:29] LABS: ANION GAP 10 (6-22 (CALC)); BUN 10 mg/dL (7-17); BUN/CREATININE RATIO 14 (12-20 (CALC)); CHLORIDE 112 mmol/l (95-108); CREATININE 0.7 mg/dL (0.5-1.0); GFR > 60 ML/MIN (>=60 (CALC)); GFR FOR AFR.AMER. > 60 ML/MIN (>=60 (CALC)); MAGNESIUM 1.6 mg/dL (1.6-2.3); SODIUM 135 mmol/l (137-146)
[2022-04-01 05:44] LABS: CARBON DIOXIDE 17 mmol/l (22-30)
--- NOTE | 2022-04-01 07:00 | NUR ---
pt awake in bed; no apparent distress noted; assessment completed at this time; pt alert and oriented; admits to pain rating 8/10 to abd and back; medicated as per orders; medicated for nausea as well; no vomiting; resp even and unlabored; lungs clear; skin color wnl; ra; hr reg; strong pulses; no edema noted; sr on monitor; abd soft with bs present; no bm noted per technical report writer; pt denies passing flatus; pt voiding without pain or burning; no urine to inspect at this time; bsc; #20 saline locked to rac; #20 to lac patent with ivf infusing without complication; no redness or edema noted at site; lap incisions noted to abd x5 with glue intact; no s/s of infection noted; plan of care explained; pt encouraged to ambulate more within room; call light within reach; will continue to monitor
--- NOTE | 2022-04-01 08:20 | NUR ---
awake in bed eating breakfast; no apparent distress noted; pt offers no complaints; iv intact and patent; sr on monitor; call light within reach; will continue to monitor
--- NOTE | 2022-04-01 10:15 | NUR ---
pt awake in bed; no apparent distress noted; pt offers no complaints; ST on monitor; iv intact; Dr Rene present at bedside to assess pt and discuss plan of care
--- NOTE | 2022-04-01 11:32 | NUR ---
report given to Galdino Saucedo RN; pt to transfer to [facility] 266
--- NOTE | 2022-04-01 11:45 | NUR ---
pt transferred to med surg 266 via wc accompanied by Galdino Neumann CNA in stable condition; belongings sent with pt;
--- NOTE | 2022-04-01 11:55 | NUR ---
REPORT RECEIVED FROM LEONIDES IN ICU, PT ARRIVED ON UNIT @ 1150 TRANSPORTED VIA W/C BY STAFF. ALERT AND ORIENTED, C/O ABD PAIN @ 06/10, ISSUE ADDRESSED, ADVISED/ENCOURAGED TO AMBULATE TO PROMOTE PASSING OF GAS POST SURGERY, SHE REPORTED SHE JUST NOW STARTED TO PASS GAS. SETTLED IN BED, IVF INFUSING TO SITE IN LAC (LR @ 100ML/HR) ORIENTED TO ROOM AND CALL ESPINOSA, WILL CONTINUE TO MONITOR.
--- NOTE | 2022-04-01 16:00 | NUR ---
AMBULATING IN ROOM AND REPORTS PASSING MUCH GAS, ENCOURAGED TO CONTINUE AMBULATING PERIODICALLY.
--- NOTE | 2022-04-01 17:32 | NUR ---
PT INQUIRING ABOUT HER THYROID MED STATING SHE TAKES 150 MCG BUT HER MED REC HAS DIFFERENT INFORMATION, DR BABIN NOTIFIED ABOUT CONCERNS, AWAITING RESPONSE.
--- NOTE | 2022-04-01 20:00 | NUR ---
RECEIVED REPORT FROM NURSE CH ASSUMED PATIENT CARE, PATIENT RESTING IN BED, ALERT ORIENTED X 4, AMBULATORY, C/O NAUSES AND PAIN ON LEFT UPPER QUADRANT PS 6-7/10 DULL SOMETIMES SHARP DESCRIBED BY PATIENT, HAS SALINE LOCK ON RAC PATENT FLUSHES WELL, AND G20 ON LAC ONGOIG LR @ 100CC/HR INFUSING WELL, CLEAR LUNG SOUNDS ON AUSCULTATION, USES INCENTIVE SPIROMETER, ACTIVE BOWEL SOUNDS ON BOTH LOWER QUADRANTS AND HYPOACTIVE UPPER QUADRANT, PATIENT CONFIRMS THAT HAS BEEN PASSING GAS, NO BOWEL MOVEMENT YET, ENCOURAGE ON AMBULATION, PATIENT MEDICATED, WILL REEVALUATE EFFECTIVENESS.CALL LIGHT AT REACH.
--- NOTE | 2022-04-02 | NUR ---
PATIENT RESTING IN BED, AT THIS TIME, BREATHIG EVEN UNLABORED, NO DISCOMFORTS NOTED CALL LIGHT AT REACH.
--- NOTE | 2022-04-02 04:10 | NUR ---
PATIENT AWAKE AT THIS TIME, WALKING IN ROOM AND WENT TO THE BATHROOM, CURRENTLY BACK IN BED, BREATHING UNLABORED, CALL LIGHT IN REACH.
[2022-04-02 04:52] VITALS: BP 117/75
[2022-04-02 05:18] LABS: HEMATOCRIT 32.9 % (37.0-47.0); HEMOGLOBIN 10.7 g/dl (12.0-16.0); MEAN CELL VOLUME 95.9 fL CALC (80.0-100.0); MEAN CORPUSCULAR HGB 31.2 pG CALC (26.0-32.0); MEAN CORPUSCULAR HGB CONC 32.5 g/dL CAL (32.0-36.0); RED BLOOD COUNT 3.43 mill/uL (4.20-5.60)
[2022-04-02 05:49] LABS: ANION GAP 11 (6-22 (CALC)); BUN 9 mg/dL (7-17); BUN/CREATININE RATIO 14 (12-20 (CALC)); CHLORIDE 106 mmol/l (95-108); CREATININE 0.7 mg/dL (0.5-1.0); GFR > 60 ML/MIN (>=60 (CALC)); GFR FOR AFR.AMER. > 60 ML/MIN (>=60 (CALC)); MAGNESIUM 1.5 mg/dL (1.6-2.3); POTASSIUM 3.9 mmol/l (3.5-5.1); SODIUM 134 mmol/l (137-146)
[2022-04-02 05:54] LABS: CARBON DIOXIDE 21 mmol/l (22-30)
--- NOTE | 2022-04-02 06:50 | NUR ---
REPORT RECEIVED FROM SANDRA DALLAS.
[2022-04-02 07:48] VITALS: BP 104/59
--- NOTE | 2022-04-02 07:48 | NUR ---
PT RESTING IN SEMI FOWLERS POSITION,A&O X3;VS OBTAINED AND ASSESSMENT COMPLETED;PT POST OP LAP TRANSVAGINAL HYSTERECTOMY 03/30 OUTPATIENT;RESPIRATIONS EVEN AND UNLABORED ON RA,CLEAR LUNG SOUNDS; I.S. AT BEDSIDE AND PT EDUCATED ON USE, ENCOURAGED USE 10X PER HOUR; PT COVID POSITIVE 03/31/22 SO AIR/CONTACT PRECAUTIONS IN PLACE;ABDOMEN DISTENDED/SOFT ON PALPATION AND HYPOACTIVE IN ALL 4 QUADRANTS;LAST BM 03/30, MOM WAS ADMINISTERED THIS MORNING PER REQUEST;PT DOES REPORT FLATULENCE;X4 INCISIONAL AREAS NOT TO ABDOMEN WITH DERMOBOND IN PLACE;STRONG PEDAL PULSES;SKIN INTACT;#20G TO LAC INFUSING LR @ 100ML/HR AND #20G TO RAC FLUSHED AND PATENT, BOTH SITES APPEAR HEALTHY;ACCUCHECK 225, PT COVERED WITH SLIDING SCALE INSULIN PER ORDER;PT REQUESTING ADDITONAL LAXATIVE TO BE NOTIFIED;PT DENIES ANY ADDITIONAL NEEDS AND IS ENCOURAGED TO CALL FOR ASSISTANCE IF NEEDED;CALL LIGHT IN REACH AND HOURLY ROUNDS TO BE MADE.
--- NOTE | 2022-04-02 08:30 | NUR ---
NOTIFIED OF REQUEST FOR LAXATIVE PER PT, NEW ORDERS RECEIVED AT THIS TIME.
--- NOTE | 2022-04-02 08:40 | NUR ---
PHYSICAL THERAPY AT BEDSIDE WORKING WITH PATIENT.
--- NOTE | 2022-04-02 11:17 | NUR ---
AT BEDSIDE DISCUSSING POC.
--- NOTE | 2022-04-02 11:50 | NUR ---
PT RESTING IN SEMI FOWLERS POSITION;RESPIRATIONS EVEN AND UNLABORED ON RA;PT DENIES ANY CURRENT PAIN OR NEEDS;IV SITE PATENT INFUSING MAG WITH EASE PER ORDER;ACCUCHECK 309, PT COVERED WITH ADDITIONAL 10 UNITS OF LEVEMIR AND HUMALOG PER ORDER;PT EDUCATED ON PLANS TO D/C HOME THIS AFTERNOON AND VERBALIZES UNDERSTANDING;PT DENIES ANY ADDITIONAL NEEDS AND IS ENCOURAGED TO CALL FOR ASSISTANCE IF NEEDED;CALL LIGHT IN REACH;FREQUENT ROUNDS MADE.
--- NOTE | 2022-04-02 13:10 | NUR ---
GLUCOSE RECHECK 230, ANRP NOTIFIED AND OKAY TO D/C PATIENT HOME.
--- NOTE | 2022-04-02 13:46 | NUR ---
ALL DISCHARGE INSTRUCTIONS PROVIDED AT THIS TIME;PT ENCOURAGED TO MONITOR BLOOD SUGARS AND TAKE MEDICATION DIRECTED. ALSO TO FOLLOW WITH SURGEON OUTPATIENT. PT DENIES ANY ADDITIONAL QUESTIONS OR NEEDS;#20G TO RAC AND #20G TO LAC REMOVED WITH CATHETER INTACT;PT TO BE TRANSPORTED HOME ACCOMPANIED BY SPOUSE;WC TO BE PROVIDED FOR D/C HOME.
--- NOTE | 2022-04-02 14:32 | NUR ---
Discharge instructions given. Patient verbalizes understanding of same. Discharged in stable condition via Wheelchair to Home with spouse. All belongings sent with pt. PT TRANSPORTED TO [facility] IN STABLE CONDITION VIA ACCOMPANIED BY MEJIA ARROYO.ALL BELONGINGS LEFT WITH PT.SPOUSE TO TRANSPORT PT HOME.
== END 2022-04-02 14:45 | disposition home or self-care (01) | DRG 637 ==
LOC: ED 05:16 → ED-I 07:00 → ED 08:44 → ICU 08:45 → MS2 04-01 11:50
PROVIDERS: Emergency Medicine; Family Medicine; ADMIT Hospitalist; ATTEND Hospitalist
DX: E10.10 Type 1 diabetes mellitus with ketoacidosis without coma (principal); U07.1 COVID-19; Z79.4 Long term (current) use of insulin; Z90.710 Acquired absence of both cervix and uterus; Z98.890 Other specified postprocedural states
CPT/HCPCS: G0378; J1650; J3475; Q9967

== ENCOUNTER 2022-08-15 12:03 | Emergency (ER) | payer OTHER ==
[~2022-08-15] VITALS: Ht 177.8 cm; Wt 90.9 kg
[~2022-08-15 12:03] MED LIST changes: +FREESTYLE LIBRE1 KI1 SC; +LANTUS100 UNIT SC; +LEVOTHYROXIN75 MCG PO; +NOVOLOG FL100 UNIT/M; +PERCOCET 5/325M1 TAB PO
[2022-08-15 13:03] LABS: HEMOGLOBIN 13.6 g/dl (12.0-16.0); MEAN CELL VOLUME 89.9 fL CALC (80.0-100.0); MEAN CORPUSCULAR HGB 31.3 pG CALC (26.0-32.0); MEAN CORPUSCULAR HGB CONC 34.9 g/dL CAL (32.0-36.0); NEUT# 2.71 thou/uL (2.00-7.15); RED BLOOD COUNT 4.34 mill/uL (4.20-5.60); RED CELL DISTRI WIDTH 12.2 % (11.5-15.5)
[2022-08-15 13:32] LABS: ALBUMIN 4.4 g/dL (3.2-5.0); ALKALINE PHOSPHATASE 52 u/l (38-126); BUN 13 mg/dL (7-17); BUN/CREATININE RATIO 17 (12-20 (CALC)); CHLORIDE 104 mmol/l (95-108); CREATININE 0.8 mg/dL (0.5-1.0); GFR FOR AFR.AMER. > 60 ML/MIN (>=60 (CALC)); GFR OTHER RACES > 60 ML/MIN (>=60 (CALC)); POTASSIUM 3.9 mmol/l (3.5-5.1); SGOT/AST 17 u/l (14-36); SODIUM 135 mmol/l (137-146); TOTAL PROTEIN 6.7 g/dL (6.3-8.2)
[2022-08-15 13:36] LABS: ANION GAP 15 (6-22 (CALC)); BILIRUBIN, TOTAL 0.8 mg/dL (0.0-1.4); CARBON DIOXIDE 20 mmol/l (22-30)
[2022-08-15] MEDS ORDERED: REGLAN10 MG PO (15:35)
[2022-08-15] MEDS ORDERED: FIORICET PO (15:35)
[2022-08-15 15:57] VITALS: BP 114/97
[2022-08-15 16:37] LABS: URINE BILIRUBIN - DIPSTICK NEGATIVE (NEGATIVE); URINE BLOOD DIPSTICK NEGATIVE (NEGATIVE); URINE COLOR YELLOW; URINE GLUCOSE - DIPSTICK 500 mg/dL (NEGATIVE); URINE KETONE 40 mg/dL (NEGATIVE); URINE LEUK ESTERASE NEGATIVE (NEGATIVE); URINE PH 7.5 (4.5-8.0); URINE PROTEIN - DIPSTICK NEGATIVE (NEG-TRACE); URINE UROBILINOGEN - DIPSTICK 0.2 E.U./dL (0.2)
[2022-08-15 16:41] LABS: URINE NITRITE - DIPSTICK NEGATIVE (Negative)
[2022-08-16] MEDS ORDERED: LEVOTHYROXIN150 MCG PO (11:05)
[2022-08-16] MEDS ORDERED: TRESIBA FL100 UNIT/M SC (11:06)
== END 2022-08-15 16:10 | disposition home or self-care (01) | DRG 103 ==
LOC: ED 12:03
PROVIDERS: Nurse Practitioner
DX: G43.909 Migraine, unspecified, not intractable, without status migrainosus (principal); E11.9 Type 2 diabetes mellitus without complications; E05.00 Thyrotoxicosis with diffuse goiter without thyrotoxic crisis or storm; Z79.4 Long term (current) use of insulin

== ENCOUNTER 2023-07-12 19:48 | Emergency (ER) | payer OTHER ==
[~2023-07-12] VITALS: Ht 180.3 cm; Wt 95.0 kg
[~2023-07-12 19:48] MED LIST changes: +ALBUTEROL SUL0.083 % IN; +FIORICET PO; +LEVOTHYROXIN150 MCG PO; +LEXAPRO10 MG PO; +MECLIZINE 2525 MG PO; +MEDDOSEPAK PO; +PHENERGAN25 MG RE; +REGLAN10 MG PO
[2023-07-12 20:21] LABS: BASO% 0.7 % (0-3); EOS% 2.9 % (0-8); HEMOGLOBIN 12.6 g/dl (12.0-16.0); LYMPH% 42.5 % (15-41); MEAN CELL VOLUME 94.3 fL CALC (80.0-100.0); MEAN CORPUSCULAR HGB 31.3 pG CALC (26.0-32.0); MEAN CORPUSCULAR HGB CONC 33.2 g/dL CAL (32.0-36.0); MONO% 7.1 % (2-13); NEUT# 2.79 thou/uL (2.00-7.15); NEUT% 46.8 % (42-76); RED BLOOD COUNT 4.03 mill/uL (4.20-5.60); RED CELL DISTRI WIDTH 11.9 % (11.5-15.5)
[2023-07-12 20:35] LABS: ALBUMIN 4.2 g/dL (3.2-5.0); ALKALINE PHOSPHATASE 56 u/l (38-126); ANION GAP 9 (6-22 (CALC)); BILIRUBIN, TOTAL 0.8 mg/dL (0.02-1.3); BUN 10 mg/dL (7-17); BUN/CREATININE RATIO 12 (12-20 (CALC)); CARBON DIOXIDE 26 mmol/l (22-30); CHLORIDE 105 mmol/l (95-108); CPK 81 u/l (30-135); CREATININE 0.8 mg/dL (0.5-1.0); GFR FOR AFR.AMER. > 60 ML/MIN (>=60 (CALC)); GFR OTHER RACES > 60 ML/MIN (>=60 (CALC)); MAGNESIUM 1.8 mg/dL (1.6-2.3); POTASSIUM 3.8 mmol/l (3.5-5.1); SGOT/AST 25 u/l (14-36); SODIUM 137 mmol/l (137-146); TOTAL PROTEIN 7.2 g/dL (6.3-8.2)
[2023-07-12 20:46] LABS: D-DIMER 0.55 mg/L (0.19-0.60)
[2023-07-12 20:49] LABS: ACT PARTIAL THROMBO TIME 23.3 SECONDS (20.0-32.5); INTERNATIONAL NORMALIZED RATIO 0.9 RATIO (0.7-1.3); PROTHROMBIN TIME 10.1 SECONDS (9.0-12.5)
[2023-07-12 21:05] LABS: TSH, 3RD GENERATION < 0.02 uIU/mL (0.47 - 4.68)
[2023-07-12 21:20] LABS: URINE BILIRUBIN - DIPSTICK Negative (NEGATIVE); URINE BLOOD DIPSTICK Negative (NEGATIVE); URINE COLOR Yellow; URINE GLUCOSE - DIPSTICK 500 mg/dL (NEGATIVE); URINE KETONE Negative (NEGATIVE); URINE LEUK ESTERASE Negative (NEGATIVE); URINE NITRITE - DIPSTICK Negative (Negative); URINE PH 7.5 (4.5-8.0); URINE PROTEIN - DIPSTICK Negative (NEG-TRACE); URINE SPECIFIC GRAVITY 1.025; URINE UROBILINOGEN - DIPSTICK 0.2 E.U./dL (0.2)
[2023-07-12 21:35] VITALS: BP 114/68
== END 2023-07-12 21:35 | disposition home or self-care (01) | DRG 645 ==
LOC: ED 19:48
PROVIDERS: Family Medicine
DX: E03.9 Hypothyroidism, unspecified (principal); E10.65 Type 1 diabetes mellitus with hyperglycemia; E05.00 Thyrotoxicosis with diffuse goiter without thyrotoxic crisis or storm; Z79.4 Long term (current) use of insulin

== ENCOUNTER 2024-08-28 07:11 | Emergency (ER) | payer OTHER ==
[2024-08-28] VITALS (10 sets, daily range): BP systolic 87–125; BP diastolic 49–86
[~2024-08-28] VITALS: Ht 177.8 cm; Wt 95.2 kg
[2024-08-28] MEDS ORDERED: SODIUM CHLORIDE 0.9% 1,000 ML IV ONE (07:20)
[2024-08-28] MEDS ORDERED: ONDANSETRON HCl 4 MG/2 ML SDV IV ONE (07:20)
[2024-08-28] MEDS ORDERED: MORPHINE SULFATE 4 MG/ML VIAL IV ONE (07:25)
[2024-08-28 07:36] LABS: EOS% 3.9 % (0-8); HEMATOCRIT 38.5 % (37.0-47.0); HEMOGLOBIN 12.6 g/dl (12.0-16.0); IMMATURE GRANULOCYTES 0.2 % (0.0-5.0); LYMPH% 40.6 % (15-41); MEAN CELL VOLUME 95.8 fL CALC (80.0-100.0); MEAN CORPUSCULAR HGB 31.3 pG CALC (26.0-32.0); MEAN CORPUSCULAR HGB CONC 32.7 g/dL CAL (32.0-36.0); MONO% 8.3 % (2-13); NEUT# 2.38 thou/uL (2.00-7.15); RED BLOOD COUNT 4.02 mill/uL (4.20-5.60); RED CELL DISTRI WIDTH 12.6 % (11.5-15.5)
[2024-08-28 07:48] LABS: ALBUMIN 4.1 g/dL (3.2-5.0); BILIRUBIN, TOTAL 0.6 mg/dL (0.02-1.3); CREATININE 0.9 mg/dL (0.5-1.0); POTASSIUM 4.1 mmol/l (3.5-5.1); TOTAL PROTEIN 6.8 g/dL (6.3-8.2)
[2024-08-28] MEDS ORDERED: KETOROLAC TROMETHAMINE 30 MG/ML SDV IV ONE (08:05)
[2024-08-28] MEDS ORDERED: ONDANSETRON4 MG PO (08:23)
[2024-08-28 09:20] LABS: URINE BILIRUBIN - DIPSTICK Negative (NEGATIVE); URINE BLOOD DIPSTICK Negative (NEGATIVE); URINE GLUCOSE - DIPSTICK Negative (NEGATIVE); URINE KETONE Negative (NEGATIVE); URINE LEUK ESTERASE Negative (NEGATIVE); URINE NITRITE - DIPSTICK Negative (Negative); URINE PROTEIN - DIPSTICK Negative (NEG-TRACE); URINE SPECIFIC GRAVITY 1.015; URINE UROBILINOGEN - DIPSTICK 0.2 E.U./dL (0.2)
[2024-08-28 09:21] LABS: URINE COLOR Yellow
== END 2024-08-28 09:14 | disposition home or self-care (01) | DRG 392 ==
LOC: ED 07:11
PROVIDERS: Family Medicine
DX: K52.9 Noninfective gastroenteritis and colitis, unspecified (principal); E10.8 Type 1 diabetes mellitus with unspecified complications; E05.00 Thyrotoxicosis with diffuse goiter without thyrotoxic crisis or storm; Z79.4 Long term (current) use of insulin

== ENCOUNTER 2025-01-05 20:29 | Emergency (ER) | payer OTHER ==
[~2025-01-05] VITALS: Ht 177.8 cm; Wt 92.0 kg
[2025-01-05] MEDS ORDERED: ONDANSETRON HCl 4 MG/2 ML SDV IV ONE (20:50)
[2025-01-05] MEDS ORDERED: SODIUM CHLORIDE 0.9% 1,000 ML IV ONE (20:50)
[2025-01-05 21:02] LABS: URINE BILIRUBIN - DIPSTICK Negative (NEGATIVE); URINE BLOOD DIPSTICK Negative (NEGATIVE); URINE GLUCOSE - DIPSTICK >=1000 mg/dL (NEGATIVE); URINE KETONE Trace mg/dL (NEGATIVE); URINE LEUK ESTERASE Negative (NEGATIVE); URINE NITRITE - DIPSTICK Negative (Negative); URINE PROTEIN - DIPSTICK Negative (NEG-TRACE); URINE SPECIFIC GRAVITY 1.025; URINE UROBILINOGEN - DIPSTICK 0.2 E.U./dL (0.2)
[2025-01-05 21:02] LABS: BASO% 1.1 % (0-3); EOS% 2.9 % (0-8); HEMATOCRIT 38.4 % (37.0-47.0); HEMOGLOBIN 12.6 g/dl (12.0-16.0); IMMATURE GRANULOCYTES 0.2 % (0.0-5.0); LYMPH% 44.7 % (15-41); MEAN CORPUSCULAR HGB 30.5 pG CALC (26.0-32.0); MEAN CORPUSCULAR HGB CONC 32.8 g/dL CAL (32.0-36.0); MONO% 16.6 % (2-13); NEUT# 1.52 thou/uL (2.00-7.15); NEUT% 34.5 % (42-76); RED BLOOD COUNT 4.13 mill/uL (4.20-5.60); RED CELL DISTRI WIDTH 11.7 % (11.5-15.5)
[2025-01-05 21:03] LABS: URINE COLOR Yellow
[2025-01-05 21:12] LABS: ALBUMIN 3.9 g/dL (3.2-5.0); BILIRUBIN, TOTAL 0.4 mg/dL (0.02-1.3); CREATININE 0.9 mg/dL (0.5-1.0); POTASSIUM 3.4 mmol/l (3.5-5.1); TOTAL PROTEIN 6.3 g/dL (6.3-8.2)
[2025-01-05] MEDS ORDERED: diazePAM 10 MG/2 ML VIAL IV ONE (21:15)
[2025-01-05 22:43] VITALS: BP 100/68
== END 2025-01-05 22:43 | disposition home or self-care (01) | DRG 392 ==
LOC: ED 20:29
PROVIDERS: Family Medicine
DX: R11.2 Nausea with vomiting, unspecified (principal); R42 Dizziness and giddiness; E10.9 Type 1 diabetes mellitus without complications; E05.00 Thyrotoxicosis with diffuse goiter without thyrotoxic crisis or storm; Z79.4 Long term (current) use of insulin
CPT/HCPCS: J2405; J3360

== ENCOUNTER 2025-01-16 19:59 | Emergency (ER) | payer OTHER ==
[~2025-01-16] VITALS: Ht 177.8 cm; Wt 93.0 kg
[2025-01-16] MEDS ORDERED: methylPREDNISolone SODIUM SUCC 125 MG/2 ML SDV IV ONE (20:40)
[2025-01-16] MEDS ORDERED: IPRATROPIUM-Albuterol 0.5MG-2.5MG/3 ML NEB ONE (20:40)
[2025-01-16 20:45] VITALS: BP 122/83
[2025-01-16 21:03] VITALS: BP 127/78
[2025-01-16 21:04] LABS: BASO% 0.5 % (0-3); EOS% 1.5 % (0-8); HEMATOCRIT 35.5 % (37.0-47.0); HEMOGLOBIN 12.4 g/dl (12.0-16.0); LYMPH% 38.9 % (15-41); MEAN CELL VOLUME 89.9 fL CALC (80.0-100.0); MEAN CORPUSCULAR HGB 31.4 pG CALC (26.0-32.0); MEAN CORPUSCULAR HGB CONC 34.9 g/dL CAL (32.0-36.0); MONO% 7.3 % (2-13); NEUT# 3.03 thou/uL (2.00-7.15); NEUT% 51.8 % (42-76); RED BLOOD COUNT 3.95 mill/uL (4.20-5.60); RED CELL DISTRI WIDTH 11.7 % (11.5-15.5)
[2025-01-16] MEDS ORDERED: SODIUM CHLORIDE 0.9% 1,000 ML IV ONE (21:10)
[2025-01-16 21:15] VITALS: BP 120/82
[2025-01-16 21:18] LABS: ALBUMIN 3.9 g/dL (3.2-5.0); ALKALINE PHOSPHATASE 65 u/l (38-126); ANION GAP 12 (6-22 (CALC)); BUN 17 mg/dL (7-17); BUN/CREATININE RATIO 21 (12-20 (CALC)); CARBON DIOXIDE 24 mmol/l (22-30); CHLORIDE 104 mmol/l (95-108); CREATININE 0.8 mg/dL (0.5-1.0); D-DIMER 0.39 mg/L (0.19-0.60); ESTIMATED GFR 95 ML/MIN (>=90 (CALC)); POTASSIUM 3.9 mmol/l (3.5-5.1); SGOT/AST 27 u/l (14-36); SODIUM 136 mmol/l (137-146); TOTAL PROTEIN 6.5 g/dL (6.3-8.2)
[2025-01-16 21:19] LABS: PROTHROMBIN TIME 10.9 SECONDS (9.0-12.5)
[2025-01-16 21:20] LABS: BILIRUBIN, TOTAL 0.7 mg/dL (0.02-1.3)
[2025-01-16 21:51] LABS: TSH, 3RD GENERATION 0.03 uIU/mL (0.47 - 4.68)
[2025-01-16 22:15] VITALS: BP 127/83
[2025-01-16] MEDS ORDERED: LORazepam 2 MG/ML IV ONE (22:30)
[2025-01-16] MEDS ORDERED: diazePAM 10 MG/2 ML VIAL IV ONE (22:40)
[2025-01-16] MEDS ORDERED: XANAX0.25 MG PO (22:48)
[2025-01-16 22:54] VITALS: BP 127/83
== END 2025-01-16 22:59 | disposition home or self-care (01) | DRG 204 ==
LOC: ED 19:59
PROVIDERS: Family Medicine
DX: R06.00 Dyspnea, unspecified (principal); F41.9 Anxiety disorder, unspecified; E10.9 Type 1 diabetes mellitus without complications; E05.00 Thyrotoxicosis with diffuse goiter without thyrotoxic crisis or storm; E89.0 Postprocedural hypothyroidism; Z79.4 Long term (current) use of insulin; Z20.822 Contact with and (suspected) exposure to COVID-19
CPT/HCPCS: J3360